=== PATIENT | female | born 1945 | race Two or more races ===

== ENCOUNTER 2021-07-26 08:01 | Inpatient (IN) | payer BC, MEDICARE ==
[~2021-07-26] VITALS: Ht 157.5 cm; Wt 70.3 kg
[~2021-07-26 08:01] MED LIST: AMLO10TA4 PO; COR3 PO; FURO-151 PO; LISI20TA31 PO; METF-416 PO; METO10TA3 PO; PANT40TA51 PO; PREG75CA PO; [UNRECOGNIZED DRUG - CODE] PO
[2021-07-26] MEDS ORDERED: LIPITOR (08:10)
[2021-07-26] MEDS ORDERED: LANTUS (08:10)
[2021-07-26] MEDS ORDERED: MORPHINE SULFATE 4 MG/ML CPJ (NOT FOR IM USE) IV STA (08:38)
[2021-07-26] MEDS ORDERED: ONDANSETRON HCL 4MG/2ML INJ IV STA (08:38)
[2021-07-26] MEDS ORDERED: SODIUM CHLORIDE 0.9% 1,000 ML IV ONE ×2 (08:45→11:45)
[2021-07-26 09:14] LABS: BASOPHILS % 0.2 % (0.0-2.0); HEMATOCRIT. 41.1 % (36.0-48.0); HEMOGLOBIN. 13.3 g/dL (12.0-16.0); LYMPHOCYTES % 17.2 % (20.0-50.0); MEAN CORPUSCULAR HEMOGLOBIN 31.7 pg (28.0-32.0); MEAN CORPUSCULAR VOLUME 97.6 fL (81.0-99.0); MEAN PLATELET VOLUME 9.2 fl (7.4-10.4); MONOCYTES % 1.9 % (2.0-8.0); NEUTROPHILS % 80.7 % (40.0-76.0); PLATELET 273 x1000/uL (130-400); RED BLOOD CELL COUNT 4.21 mill/uL (4.2-5.4)
[2021-07-26] MEDS ORDERED: MORPHINE SULFATE 2 MG/ML CPJ (NOT FOR IM USE) IV NR (09:15)
[2021-07-26 09:28] LABS: CHLORIDE 102 mEq/L (98-107)
[2021-07-26 10:04] LABS: PROTHROMBIN TIME 10.7 sec (9.6-11.0)
[2021-07-26 14:29] LABS: CLARITY URINE CLEAR (CLEAR); COLOR URINE YELLOW (YELLOW); KETONES URINE TRACE (NEGATIVE); LEUKOCYTE ESTERASE URINE NEGATIVE (NEGATIVE); NITRITE URINE NEGATIVE (NEGATIVE); OCCULT BLOOD URINE TRACE (NEGATIVE); PH URINE 6.5 (4.5-8.0); PROTEIN URINE 2+ (NEGATIVE)
[2021-07-26] MEDS ORDERED: POLYETHYLENE GLYCOL 3350 (17GM) 1 DOSE PACK PO NR (16:00)
[2021-07-26] MEDS ORDERED: ONDANSETRON HCL 4MG/2ML INJ IV PRN (16:00)
[2021-07-26] MEDS ORDERED: GUAIFENESIN 200MG/10ML SUGAR FREE UDC PO PRN (16:00)
[2021-07-26] MEDS ORDERED: DIPHENHYDRAMINE 50MG/ML VIAL IV PRN (16:00)
[2021-07-26] MEDS ORDERED: MAGNESIUM/ALUMINUM HYDROXIDE/SIMETHICONE 30ML UDC PO PRN (16:00)
[2021-07-26] MEDS ORDERED: LORAZEPAM 2MG/ML CPJ IV PRN (16:00)
[2021-07-26] MEDS ORDERED: HYDRALAZINE 20MG/ML VIAL IV PRN (16:00)
[2021-07-26] MEDS ORDERED: ACETAMINOPHEN 325MG TABLET PO PRN (16:00)
[2021-07-26] MEDS ORDERED: DOCUSATE SODIUM 100MG CAPSULE PO PRN (16:00)
[2021-07-26] MEDS ORDERED: HYDROCODONE/ACETAMINOPHEN 5/325MG TABLET PO PRN (16:00)
[2021-07-26] MEDS ORDERED: MORPHINE SULFATE 2 MG/ML CPJ (NOT FOR IM USE) IV PRN (16:00)
[2021-07-26] MEDS ORDERED: IPRATROPIUM/ALBUTEROL 0.5-3(2.5)MG/3ML NEB HHN PRN (16:00)
[2021-07-26] MEDS: ENOXAPARIN 40MG/0.4ML SYR SUBCUT SCH (16:59)
[2021-07-26] MEDS: SODIUM CHLORIDE 0.45% 1,000 ML IV SCH (17:05)
[2021-07-26 20:00] VITALS: BP 164/62
[2021-07-26] MEDS: CLONIDINE 0.1MG TABLET PO PRN (20:52)
[2021-07-26] MEDS: SODIUM CHLORIDE 0.9% INJ 3ML FLUSH IVF SCH (20:59)
[2021-07-26 21:00] VITALS: BP 164/62
[2021-07-26] MEDS ORDERED: DEXTROSE 50% WATER 50ML SYRINGE IV PRN (21:30)
[2021-07-27] VITALS: BP 173/70
[2021-07-27 04:00] VITALS: BP 174/76
[2021-07-27] MEDS: CLONIDINE 0.1MG TABLET PO PRN (04:51)
[2021-07-27] MEDS: SODIUM CHLORIDE 0.9% INJ 3ML FLUSH IVF SCH ×2 (04:56→14:08)
[2021-07-27] MEDS: BLOOD SUGAR DIAGNOSTIC STRIP TEST SCH ×2 (06:26→12:01)
[2021-07-27] MEDS: INSULIN LISPRO 100 UNITS/ML SUBCUT SCH ×2 (07:50→12:03)
[2021-07-27 08:00] VITALS: BP 104/54
[2021-07-27 08:00] LABS: CHLORIDE 103 mEq/L (98-107)
[2021-07-27 08:12] LABS: BASOPHILS % 0.4 % (0.0-2.0); EOSINOPHILS % 0.1 % (0.0-5.0); HEMATOCRIT. 33.3 % (36.0-48.0); HEMOGLOBIN. 11.5 g/dL (12.0-16.0); LYMPHOCYTES % 27.8 % (20.0-50.0); MEAN CORPUSCULAR VOLUME 92.9 fL (81.0-99.0); MEAN PLATELET VOLUME 8.9 fl (7.4-10.4); MONOCYTES % 5.4 % (2.0-8.0); NEUTROPHILS % 66.3 % (40.0-76.0); PLATELET 300 x1000/uL (130-400); RED BLOOD CELL COUNT 3.59 mill/uL (4.2-5.4); RED CELL DISTRIBUTION WIDTH 12.7 % (11.6-14.6)
[2021-07-27 12:00] VITALS: BP 128/61
[2021-07-27 16:00] VITALS: BP 120/52
[2021-07-27] MEDS: ENOXAPARIN 40MG/0.4ML SYR SUBCUT SCH (16:00)
[2021-07-27] MEDS: SODIUM CHLORIDE 0.45% 1,000 ML IV SCH (16:02)
[2021-07-27 16:33] VITALS: BP 120/52
== END 2021-07-27 17:50 | disposition home or self-care (01) | DRG 392 ==
LOC: ER 08:01 → EDBEDREQ 11:44 → 6EST 13:22 → EDBEDREQ 13:26 → CANRESERV 14:43 → ENRESERV 14:43
PROVIDERS: ADMIT Internal Medicine; ATTEND Internal Medicine
DX: K52.9 Noninfective gastroenteritis and colitis, unspecified (principal); R65.10 Systemic inflammatory response syndrome (SIRS) of non-infectious origin without acute organ dysfunction; E87.1 Hypo-osmolality and hyponatremia; I25.10 Atherosclerotic heart disease of native coronary artery without angina pectoris; I11.0 Hypertensive heart disease with heart failure; I50.9 Heart failure, unspecified; E11.9 Type 2 diabetes mellitus without complications; K59.00 Constipation, unspecified; Z88.0 Allergy status to penicillin; Z79.899 Other long term (current) drug therapy; Z79.84 Long term (current) use of oral hypoglycemic drugs; Z86.73 Personal history of transient ischemic attack (TIA), and cerebral infarction without residual deficits; Z90.49 Acquired absence of other specified parts of digestive tract
CPT/HCPCS: 36415; 74176; 80053; 81003; 82962; 83036; 84484; 85025; 93005; 99285; J1650; J2270; J2405; J7030

== ENCOUNTER 2022-08-09 12:27 | Inpatient (IN) | payer MEDICARE, OTHER ==
[~2022-08-09] VITALS: Ht 154.9 cm; Wt 78.2 kg
[~2022-08-09 12:27] MED LIST changes: +LANTUS; +LIPITOR
[2022-08-09 15:23] LABS: CHLORIDE 104 mEq/L (98-107)
[2022-08-09 16:03] LABS: BASOPHILS % 0.5 % (0.0-2.0); HEMATOCRIT. 34.3 % (36.0-48.0); HEMOGLOBIN. 11.5 g/dL (12.0-16.0); LYMPHOCYTES % 33.9 % (20.0-50.0); MEAN CORPUSCULAR HEMOGLOBIN 32.5 pg (28.0-32.0); MEAN CORPUSCULAR VOLUME 97.1 fL (81.0-99.0); MONOCYTES % 11.5 % (2.0-8.0); NEUTROPHILS % 51.1 % (40.0-76.0); PLATELET 200 x1000/uL (130-400); RED BLOOD CELL COUNT 3.53 mill/uL (4.2-5.4); RED CELL DISTRIBUTION WIDTH 13.3 % (11.6-14.6)
[2022-08-09 16:14] LABS: PROTHROMBIN TIME 11.1 sec (9.6-11.0)
[2022-08-09] MEDS ORDERED: FUROSEMIDE 40MG/4ML VIAL IVP ONE (17:15)
[2022-08-09 23:38] VITALS: BP_SYST 169; BP_SYST 200; BP_DIAS 71; BP_DIAS 87
[2022-08-10] MEDS ORDERED: OXYB5TAB17 PO (01:18)
[2022-08-10] MEDS ORDERED: ATOR40TA70 PO (01:18)
[2022-08-10] MEDS ORDERED: COR3 PO (01:18)
[2022-08-10] MEDS ORDERED: FURO-152 PO (01:18)
[2022-08-10] MEDS ORDERED: INSU100I28 SQ (01:18)
[2022-08-10] MEDS ORDERED: MELO-104 PO (01:18)
[2022-08-10] MEDS ORDERED: ASPI-1497 PO (01:18)
[2022-08-10] MEDS ORDERED: AZITHROMYCIN 500 MG in DEXT 5% WATER 250 ML IV SCH ×2 (02:30→04:00)
[2022-08-10] MEDS ORDERED: DOCUSATE SODIUM 100MG CAPSULE PO PRN (02:30)
[2022-08-10] MEDS ORDERED: IPRATROPIUM/ALBUTEROL 0.5-3(2.5)MG/3ML NEB HHN PRN (02:30)
[2022-08-10] MEDS ORDERED: HYDROCODONE/ACETAMINOPHEN 7.5/325MG TABLET PO PRN (02:30)
[2022-08-10] MEDS ORDERED: MAGNESIUM/ALUMINUM HYDROXIDE/SIMETHICONE 30ML UDC PO PRN (02:30)
[2022-08-10] MEDS ORDERED: ACETAMINOPHEN 325MG TABLET PO PRN ×2 (02:30)
[2022-08-10] MEDS ORDERED: GUAIFENESIN 200MG/10ML SUGAR FREE UDC PO PRN (02:30)
[2022-08-10] MEDS ORDERED: ONDANSETRON HCL 4MG/2ML INJ IV PRN (02:30)
[2022-08-10] MEDS ORDERED: DEXTROSE 50% WATER 50ML SYRINGE IV PRN (02:30)
[2022-08-10] MEDS ORDERED: HYDROCODONE/ACETAMINOPHEN 5/325MG TABLET PO PRN (02:30)
[2022-08-10] MEDS ORDERED: NA PHOS,M-B/NA PHOS,DI-BA ENEMA 118ML PR PRN (02:30)
[2022-08-10] MEDS ORDERED: DIPHENHYDRAMINE 50MG/ML VIAL IV PRN (02:30)
[2022-08-10] MEDS ORDERED: NALOXONE HCL 0.4MG/ML VIAL IV PRN (02:45)
[2022-08-10] MEDS ORDERED: CEFTRIAXONE 2 G PREMIX 50 ML IV SCH (02:45)
[2022-08-10] MEDS ORDERED: *PATIENT'S OWN MEDICATION STORAGE XX SCH (03:15)
[2022-08-10 04:00] VITALS: BP 156/56
[2022-08-10 05:12] LABS: CHLORIDE 103 mEq/L (98-107)
[2022-08-10 05:24] LABS: CREATINE KINASE 172 IU/L (26-192)
[2022-08-10] MEDS: BLOOD SUGAR DIAGNOSTIC STRIP TEST SCH ×4 (05:53→21:27)
[2022-08-10] MEDS: INSULIN LISPRO 100 UNITS/ML SUBCUT SCH ×4 (05:53→21:00)
[2022-08-10 06:02] LABS: HDL CHOLESTEROL 57 mg/dL (40-59); LDL CHOLESTEROL 69 mg/dL (5-100); PHOSPHORUS 2.9 mg/dL (2.5-4.9)
[2022-08-10] MEDS: PANTOPRAZOLE 40MG DR TABLET PO SCH (06:15)
[2022-08-10 06:18] LABS: BASOPHILS % 0.3 % (0.0-2.0); EOSINOPHILS % 1.6 % (0.0-5.0); HEMATOCRIT. 32.9 % (36.0-48.0); HEMOGLOBIN. 11.3 g/dL (12.0-16.0); LYMPHOCYTES % 25.4 % (20.0-50.0); MEAN CORPUSCULAR HEMOGLOBIN 32.6 pg (28.0-32.0); MEAN CORPUSCULAR VOLUME 94.6 fL (81.0-99.0); MEAN PLATELET VOLUME 9.4 fl (7.4-10.4); MONOCYTES % 10.7 % (2.0-8.0); PLATELET 223 x1000/uL (130-400); RED BLOOD CELL COUNT 3.48 mill/uL (4.2-5.4); RED CELL DISTRIBUTION WIDTH 12.9 % (11.6-14.6)
[2022-08-10 07:14] LABS: T4 FREE 1.17 ng/dL (0.76-1.46)
[2022-08-10 08:00] VITALS: BP 140/57
[2022-08-10] MEDS: MELOXICAM 7.5MG TABLET PO SCH (08:33)
[2022-08-10] MEDS: ASPIRIN 81MG EC TABLET PO SCH (08:33)
[2022-08-10] MEDS: GUAIFENESIN 600MG ER TABLET PO SCH ×2 (08:33→21:37)
[2022-08-10] MEDS: MULTIVITAMINS,THER W-MINERALS TABLET PO SCH (08:33)
[2022-08-10] MEDS: ZINC SULFATE 220 MG ( 50 ) CAPSULE PO SCH (08:33)
[2022-08-10] MEDS: CARVEDILOL 3.125 MG TABLET PO SCH (08:33)
[2022-08-10] MEDS: ATORVASTATIN CALCIUM 40MG TABLET PO SCH (08:33)
[2022-08-10] MEDS: FUROSEMIDE 20MG/2ML VIAL IVP SCH ×3 (08:34→17:12)
[2022-08-10] MEDS ORDERED: POTASSIUM CHLORIDE 20MEQ TABLET SR PO NR (09:00)
[2022-08-10] MEDS ORDERED: FUROSEMIDE 20MG TABLET PO SCH (09:00)
[2022-08-10] MEDS ORDERED: ENOXAPARIN 30MG/0.3ML SYR SUBCUT SCH (09:00)
[2022-08-10] MEDS: OXYBUTYNIN CHLORIDE 5MG TABLET PO SCH ×2 (10:18→17:12)
[2022-08-10] MEDS ORDERED: LEVOFLOXACIN 500MG PREMIX 100 ML IV SCH (11:00)
[2022-08-10 12:00] VITALS: BP 130/50
[2022-08-10 16:00] VITALS: BP 109/45
[2022-08-10 20:00] VITALS: BP 112/52
[2022-08-10 21:49] LABS: CREATINE KINASE 138 IU/L (26-192)
[2022-08-11] VITALS: BP 122/58
[2022-08-11 04:00] VITALS: BP 132/56
[2022-08-11] MEDS: BLOOD SUGAR DIAGNOSTIC STRIP TEST SCH ×4 (05:54→20:21)
[2022-08-11] MEDS: INSULIN LISPRO 100 UNITS/ML SUBCUT SCH ×4 (05:54→20:21)
[2022-08-11] MEDS: PANTOPRAZOLE 40MG DR TABLET PO SCH (05:55)
[2022-08-11 08:00] VITALS: BP 123/75
[2022-08-11] MEDS: ZINC SULFATE 220 MG ( 50 ) CAPSULE PO SCH (08:23)
[2022-08-11] MEDS: ENOXAPARIN 40MG/0.4ML SYR SUBCUT SCH (08:23)
[2022-08-11] MEDS: OXYBUTYNIN CHLORIDE 5MG TABLET PO SCH ×2 (08:23→16:59)
[2022-08-11] MEDS: ASPIRIN 81MG EC TABLET PO SCH (08:23)
[2022-08-11] MEDS: GUAIFENESIN 600MG ER TABLET PO SCH ×2 (08:23→20:29)
[2022-08-11] MEDS: CARVEDILOL 3.125 MG TABLET PO SCH (08:24)
[2022-08-11] MEDS: FUROSEMIDE 20MG/2ML VIAL IVP SCH (08:24)
[2022-08-11] MEDS: ATORVASTATIN CALCIUM 40MG TABLET PO SCH (08:24)
[2022-08-11] MEDS: MULTIVITAMINS,THER W-MINERALS TABLET PO SCH (08:27)
[2022-08-11] MEDS: MELOXICAM 7.5MG TABLET PO SCH (08:27)
[2022-08-11] MEDS ORDERED: LEVOFLOXACIN 250MG PREMIX 50 ML IV SCH (11:00)
[2022-08-11 12:00] VITALS: BP 128/73
[2022-08-11 12:29] LABS: BASOPHILS % 0.3 % (0.0-2.0); EOSINOPHILS % 8.9 % (0.0-5.0); HEMOGLOBIN. 11.1 g/dL (12.0-16.0); LYMPHOCYTES % 41.1 % (20.0-50.0); MEAN CORPUSCULAR HEMOGLOBIN 32.9 pg (28.0-32.0); MEAN CORPUSCULAR VOLUME 94.6 fL (81.0-99.0); MEAN PLATELET VOLUME 9.2 fl (7.4-10.4); MONOCYTES % 7.1 % (2.0-8.0); NEUTROPHILS % 42.6 % (40.0-76.0); PLATELET 229 x1000/uL (130-400); RED BLOOD CELL COUNT 3.38 mill/uL (4.2-5.4); RED CELL DISTRIBUTION WIDTH 13.1 % (11.6-14.6)
[2022-08-11 12:47] LABS: CHLORIDE 103 mEq/L (98-107)
[2022-08-11 16:00] VITALS: BP 114/61
[2022-08-11] MEDS: FUROSEMIDE 20MG TABLET PO SCH (17:00)
[2022-08-11 20:00] VITALS: BP 158/68
[2022-08-11 21:35] LABS: CLARITY URINE CLEAR (CLEAR); COLOR URINE YELLOW (YELLOW); KETONES URINE NEGATIVE (NEGATIVE); LEUKOCYTE ESTERASE URINE NEGATIVE (NEGATIVE); NITRITE URINE NEGATIVE (NEGATIVE); OCCULT BLOOD URINE NEGATIVE (NEGATIVE); PROTEIN URINE NEGATIVE (NEGATIVE); SPECIFIC GRAVITY URINE 1.009 (1.005-1.030)
[2022-08-12] VITALS: BP 120/72
[2022-08-12 00:49] LABS: *AMPHETAMINES SCREEN URINE NEGATIVE (NEGATIVE); *BARBITURATES SCREEN URINE NEGATIVE (NEGATIVE); *BENZODIAZEPINES SCREEN URINE NEGATIVE (NEGATIVE); *COCAINE SCREEN URINE NEGATIVE (NEGATIVE); CANNABINOID URINE SCREEN NEGATIVE (NEGATIVE); METHADONE URINE SCREEN NEGATIVE (NEGATIVE); OPIATES URINE SCREEN PRESUMTIVE POSITIVE (NEGATIVE); PHENCYCLIDINE URINE SCREEN NEGATIVE (NEGATIVE)
[2022-08-12 04:00] VITALS: BP 175/71
[2022-08-12] MEDS: CLONIDINE 0.1MG TABLET PO PRN (04:33)
[2022-08-12] MEDS: BLOOD SUGAR DIAGNOSTIC STRIP TEST SCH ×4 (06:40→20:21)
[2022-08-12] MEDS: INSULIN LISPRO 100 UNITS/ML SUBCUT SCH ×4 (06:46→20:21)
[2022-08-12 07:43] LABS: BASOPHILS % 0.4 % (0.0-2.0); EOSINOPHILS % 11.9 % (0.0-5.0); HEMATOCRIT. 35.7 % (36.0-48.0); HEMOGLOBIN. 12.2 g/dL (12.0-16.0); LYMPHOCYTES % 46.2 % (20.0-50.0); MEAN CORPUSCULAR HEMOGLOBIN 32.5 pg (28.0-32.0); MEAN CORPUSCULAR VOLUME 94.9 fL (81.0-99.0); MONOCYTES % 7.3 % (2.0-8.0); NEUTROPHILS % 34.2 % (40.0-76.0); PLATELET 269 x1000/uL (130-400); RED BLOOD CELL COUNT 3.76 mill/uL (4.2-5.4); RED CELL DISTRIBUTION WIDTH 13.3 % (11.6-14.6)
[2022-08-12 08:10] LABS: CHLORIDE 103 mEq/L (98-107)
[2022-08-12] MEDS: MULTIVITAMINS,THER W-MINERALS TABLET PO SCH (08:56)
[2022-08-12] MEDS: ENOXAPARIN 40MG/0.4ML SYR SUBCUT SCH (08:56)
[2022-08-12] MEDS: OXYBUTYNIN CHLORIDE 5MG TABLET PO SCH ×2 (08:57→17:16)
[2022-08-12] MEDS: FAMOTIDINE 20MG TABLET PO SCH (08:57)
[2022-08-12] MEDS: ATORVASTATIN CALCIUM 40MG TABLET PO SCH (08:57)
[2022-08-12] MEDS: ASPIRIN 81MG EC TABLET PO SCH (08:57)
[2022-08-12] MEDS: FUROSEMIDE 20MG TABLET PO SCH ×2 (08:57→17:16)
[2022-08-12] MEDS: GUAIFENESIN 600MG ER TABLET PO SCH ×2 (08:57→20:21)
[2022-08-12] MEDS: ZINC SULFATE 220 MG ( 50 ) CAPSULE PO SCH (08:57)
[2022-08-12 09:00] VITALS: BP 140/56
[2022-08-12] MEDS: CARVEDILOL 3.125 MG TABLET PO SCH (09:03)
[2022-08-12] MEDS: MELOXICAM 7.5MG TABLET PO SCH (09:04)
[2022-08-12] MEDS: LEVOFLOXACIN 250MG TABLET PO SCH (11:55)
[2022-08-12 16:00] VITALS: BP 150/71
[2022-08-12 20:00] VITALS: BP 151/70
[2022-08-13] VITALS: BP 153/80
[2022-08-13 04:00] VITALS: BP 174/69
[2022-08-13] MEDS: CLONIDINE 0.1MG TABLET PO PRN (04:10)
[2022-08-13] MEDS: INSULIN LISPRO 100 UNITS/ML SUBCUT SCH ×4 (05:59→21:00)
[2022-08-13] MEDS: BLOOD SUGAR DIAGNOSTIC STRIP TEST SCH ×4 (05:59→21:17)
[2022-08-13 08:16] LABS: BASOPHILS % 0.3 % (0.0-2.0); EOSINOPHILS % 10.3 % (0.0-5.0); HEMATOCRIT. 34.3 % (36.0-48.0); HEMOGLOBIN. 11.7 g/dL (12.0-16.0); LYMPHOCYTES % 41.4 % (20.0-50.0); MEAN PLATELET VOLUME 8.8 fl (7.4-10.4); MONOCYTES % 7.5 % (2.0-8.0); NEUTROPHILS % 40.5 % (40.0-76.0); PLATELET 281 x1000/uL (130-400); RED BLOOD CELL COUNT 3.65 mill/uL (4.2-5.4); RED CELL DISTRIBUTION WIDTH 12.6 % (11.6-14.6)
[2022-08-13 08:30] VITALS: BP 145/69
[2022-08-13 08:44] LABS: CHLORIDE 104 mEq/L (98-107)
[2022-08-13] MEDS: MULTIVITAMINS,THER W-MINERALS TABLET PO SCH (08:58)
[2022-08-13] MEDS: FUROSEMIDE 20MG TABLET PO SCH ×2 (08:58→17:29)
[2022-08-13] MEDS: MELOXICAM 7.5MG TABLET PO SCH (08:58)
[2022-08-13] MEDS: ASPIRIN 81MG EC TABLET PO SCH (08:58)
[2022-08-13] MEDS: OXYBUTYNIN CHLORIDE 5MG TABLET PO SCH ×2 (08:58→17:29)
[2022-08-13] MEDS: ATORVASTATIN CALCIUM 40MG TABLET PO SCH (08:58)
[2022-08-13] MEDS: GUAIFENESIN 600MG ER TABLET PO SCH ×2 (08:58→21:55)
[2022-08-13] MEDS: CARVEDILOL 3.125 MG TABLET PO SCH (08:58)
[2022-08-13] MEDS: ENOXAPARIN 40MG/0.4ML SYR SUBCUT SCH (08:59)
[2022-08-13] MEDS: FAMOTIDINE 20MG TABLET PO SCH (08:59)
[2022-08-13 10:11] VITALS: BP 145/69
[2022-08-13] MEDS: LEVOFLOXACIN 250MG TABLET PO SCH (11:00)
[2022-08-13 16:55] VITALS: BP 103/49
[2022-08-13] MEDS: CARVEDILOL 6.25 MG TABLET PO SCH (17:00)
[2022-08-13 20:00] VITALS: BP 117/42
[2022-08-14] VITALS: BP 115/50
[2022-08-14 04:00] VITALS: BP 160/73
[2022-08-14] MEDS: BLOOD SUGAR DIAGNOSTIC STRIP TEST SCH (05:33)
[2022-08-14] MEDS: INSULIN LISPRO 100 UNITS/ML SUBCUT SCH (05:34)
[2022-08-14 07:02] LABS: BASOPHILS % 0.3 % (0.0-2.0); EOSINOPHILS % 8.9 % (0.0-5.0); HEMATOCRIT. 34.5 % (36.0-48.0); HEMOGLOBIN. 11.8 g/dL (12.0-16.0); LYMPHOCYTES % 44.2 % (20.0-50.0); MEAN CORPUSCULAR VOLUME 93.5 fL (81.0-99.0); MEAN PLATELET VOLUME 8.6 fl (7.4-10.4); MONOCYTES % 6.7 % (2.0-8.0); NEUTROPHILS % 39.9 % (40.0-76.0); PLATELET 291 x1000/uL (130-400); RED BLOOD CELL COUNT 3.69 mill/uL (4.2-5.4)
[2022-08-14 08:00] VITALS: BP 167/76
[2022-08-14] MEDS: CLONIDINE 0.1MG TABLET PO PRN (08:15)
[2022-08-14] MEDS: FUROSEMIDE 20MG TABLET PO SCH (08:15)
[2022-08-14] MEDS: MULTIVITAMINS,THER W-MINERALS TABLET PO SCH (08:15)
[2022-08-14] MEDS: ATORVASTATIN CALCIUM 40MG TABLET PO SCH (08:15)
[2022-08-14] MEDS: GUAIFENESIN 600MG ER TABLET PO SCH (08:15)
[2022-08-14] MEDS: MELOXICAM 7.5MG TABLET PO SCH (08:15)
[2022-08-14] MEDS: ASPIRIN 81MG EC TABLET PO SCH (08:15)
[2022-08-14] MEDS: CARVEDILOL 6.25 MG TABLET PO SCH (08:15)
[2022-08-14] MEDS: OXYBUTYNIN CHLORIDE 5MG TABLET PO SCH (08:15)
[2022-08-14] MEDS: FAMOTIDINE 20MG TABLET PO SCH (08:15)
[2022-08-14 09:00] VITALS: BP 151/76
[2022-08-14] MEDS ORDERED: CARVEDILOL 6.25 MG TABLET PO SCH (09:00)
[2022-08-14] MEDS ORDERED: AMLODIPINE 5MG TABLET PO SCH (09:00)
== END 2022-08-14 11:28 | disposition home health service (06) | DRG 177 ==
LOC: ER 12:45 → 7EST 19:28 → ENRESERV 20:26
PROVIDERS: ADMIT Hospitalist; ATTEND Hospitalist
DX: U07.1 COVID-19 (principal); I21.A1 Myocardial infarction type 2; J96.01 Acute respiratory failure with hypoxia; E44.1 Mild protein-calorie malnutrition; I42.9 Cardiomyopathy, unspecified; J84.9 Interstitial pulmonary disease, unspecified; I11.0 Hypertensive heart disease with heart failure; E11.9 Type 2 diabetes mellitus without complications; I25.10 Atherosclerotic heart disease of native coronary artery without angina pectoris; F03.A0 Unspecified dementia, mild, without behavioral disturbance, psychotic disturbance, mood disturbance, and anxiety; E78.5 Hyperlipidemia, unspecified; Z68.32 Body mass index [BMI] 32.0-32.9, adult; Z28.310 Unvaccinated for COVID-19; Z79.4 Long term (current) use of insulin; Z88.0 Allergy status to penicillin; Z88.8 Allergy status to other drugs, medicaments and biological substances; Z79.899 Other long term (current) drug therapy; Z86.73 Personal history of transient ischemic attack (TIA), and cerebral infarction without residual deficits; I50.9 Heart failure, unspecified
CPT/HCPCS: 36415; 71045; 80048; 80053; 80061; 80305; 81003; 82550; 82962; 83036; 83605; 83735; 83880; 84100; 84145; 84439; 84443; 84481; 84484; 85025; 87070; 87426; 93005; 93970; 97162; 97166; 99291; C9803; J0456; J1650; J1815; J1940; J1956; J7060